=== PATIENT | female | born 1940 | race Caucasian/White ===

== ENCOUNTER 2021-08-05 05:20 | Day surgery (SDC) | payer MEDICARE, SELFPAY ==
[2021-08-05] VITALS (7 sets, daily range): BP systolic 107–133; BP diastolic 63–86; PULSE 63–67; RESP 15–18; TEMP 36.3–36.8; O2SAT 96–98; BMI 36.8
--- NOTE | 2021-08-05 | COLBX_PTH ---
PATIENT: BASILIO LOPEZ LOC: EN U#:[id number] AGE/SX: 81/F ROOM: RE08/05/[address]: Dr. Hector Franco DO : 1940 BED: DIS: 08/05/2021 SPEC #: [id number] RECD: 08/05/21 12:41 STATUS: SYLVIA SUZAN #: [id number] ASHLEY: 08/05/21 00:[address]: Hector Franco DEPT: SURGICAL PATHOLOGY RECD BY: Raghu Gaona ENTERED: 08/05/21 12:42 SP TYPE: COLON BX OTHR DR: Dr. Amilcar Quijano MD Tissues: A - COLON BIOPSY B - Cecum, NOS C - SPLENIC FLEXURE Procedures: Surgery Specimen Level IV HEADER OPERATION: Colonoscopy (MAC) PRE-OP DIAGNOSIS: Positive Cologuard test, constipation TISSUE SUBMITTED: A ? Hepatic flexure polyp biopsy, B ? Cecum polyp, C ? Splenic flexure polyp biopsy MICROSCOPIC DIAGNOSIS A. Colonic polyp at hepatic flexure, biopsy: Tubular adenoma. Melanosis coli. B. Cecum, biopsy: Rare benign glandular epithelium and fecal debris. See comment. C. Colonic polyp at splenic flexure, biopsy: Tubular adenoma. Melanosis coli. AM:therese 08/06/2021 COMMENT B. The specimen primarily consists of fecal material. Clinical correlation is suggested. MICROSCOPIC DESCRIPTION Slides are reviewed. GROSS DESCRIPTION A - Received in fixative is one container labeled with the patient's name and designated hepatic flexure polyp biopsy. The specimen consists of two irregular fragments of light ramos soft tissue that in aggregate measure 0.6 x 0.3 x 0.2 cm. The specimen is totally submitted in one cassette. B - Received in fixative is one container labeled with the patient's name and designated cecum polyp. The specimen consists of multiple irregular fragments of ramos soft tissue mixed with fecal material that in aggregate measure 2.5 x 0.5 x 0.1 cm. The specimen predominantly consists of fecal material. The specimen is totally submitted in one cassette. C - Received in fixative is one container labeled with the patient's name and designated splenic flexure polyp. The specimen consists of one irregular fragment of ramos soft tissue that measures 0.3 x 0.2 x 0.1 cm. The specimen is totally submitted in one cassette. / SJ:therese 08/05/2021 TC:5 CPT: 35532 x3
[2021-08-05 05:55] LABS: Bedside Glucose 143 mg/dL (70-110)
[2021-08-05 06:05] LABS: INR Fingerstick 1.1; Prothrombin Time Fingerstick 13.5 SEC (11.9-14.4)
--- NOTE | 2021-08-05 06:18 | HP.PCM_ITS ---
History and Physical Date of Admission: 08/05/21 BASILIO LOPEZ, is a 81 F who presents to the office today for for constipation and a positive cologuard. Presents today following cologard test which returned positive 11.10.21. Constipation for the last couple of months. She has taken magnesium citrate on one occasion which was effective. Miralax also used with minimal effect. 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 ROS Const Constitutional: No anorexia, fatigue, fever(s), weight change or sleep problems Eyes Eyes: No change in vision ENT ENT: No abnormal hearing, difficulty swallowing, mouth lesions, tongue swelling or throat swelling Resp Respiratory: No cough or shortness of breath Cardio Cardiology: No chest pain at rest, chest pain with exertion, shortness of breath or dyspnea on exertion Gastro GI: No difficulty swallowing Genitourinary-Female: No difficulty urinating or burning urination Musc Musculoskeletal: No joint pain, joint swelling, muscle weakness or decreased muscle mass Skin Skin: No hair loss in leg, yellowing of the eye, itchy eyes, rash, skin ulcer or skin swelling Neuro Neurology: No abnormal hearing, abnormal movements, confusion, unsteady gait/balance or memory loss Psych Psychiatric: No anxiety, No confusion and No memory loss Endo Endocrine: No fatigue or weight change Aller/Imm Allergy/Immunologic: No itchy eyes, throat swelling or tongue swelling Bill/Lymp Hematologic/Lymphatic: No easy bleeding, easy bruising or enlarged lymph nodes Exam Const General: cooperative and comfortable Nutritional Appearance: average body habitus and well nourished [facility] Head: normal to inspection Ears: hearing grossly normal bilaterally Nose: external nose normal Face and sinus: normal facial exam Mouth: oral mucosae normal Throat: posterior oropharynx normal Eyes General: appearance normal, both eyes and all related structures Neck Neck: normal visual inspection Chest Chest palpation & inspection: normal inspection of the chest and normal palpation of entire chest wall Resp Effort & Inspection: normal respiratory effort Auscultation: Bilateral: Clear to Auscultation Cardio Palpation: normal PMI Rate: regular rate Rhythm: regular rhythm GI Inspection: normal to inspection Auscultation: normal bowel sounds Percussion: normal to percussion Palpation: no hepatosplenomegaly Skin General: no rashes or lesions noted Neuro General: patient alert Extrem General: normal to inspection Psych Affect: normal affect Assessment and Plan Assessment and Plan (1) Positive colorectal cancer screening using Cologuard test: Status: Acute Plan - Dr. Young Friend, DO: This is possibly a false positive. However in the setting of anticoagulation and worsening constipation we will perform a colonoscopy for complete evaluation of the colon. She will be explained alternatives, risk, benefits including not withstanding bleeding, infection, sepsis, perforation, need for emergent . She will have an ASA of 3. She will hold her Coumadin 3 days prior to procedure. (2) Constipation: Status: Acute Plan - Dr. Young Friend, DO: She was given recommendations for a natural lubricant to help her have a normal bowel movement daily basis. She has known to have diverticular disease and hopefully this will cut down on instances of diverticulitis bleeding or constipation,. I have re-examined the patient. There are no clinical changes since date of exam.
[2021-08-05] MEDS: Lactated Ringers 1,000 ML 100 ML IV (06:34)
--- NOTE | 2021-08-05 07:17 | OP.COLON_ITS ---
Patient Name: Allison Amaya Procedure Date: 08/05/2021 6:24 AM Date of : 1940 Age: 81 Procedure: Colonoscopy Indications: Screening for colorectal malignant neoplasm Providers: Hector Franco DO Medicines: See the Anesthesia note for documentation of the administered medications Patient Profile: This is an 81 year old female. Refer to note in patient chart for documentation of history and physical. Last Colonoscopy: none. The patient's first colonoscopy is today. Complications: No immediate complications. Procedure: Pre-Anesthesia Assessment: - Prior to the procedure, a History and Physical was performed, and patient medications and allergies were reviewed. The patient is competent. The risks and benefits of the procedure and the sedation options and risks were discussed with the patient. All questions were answered and informed consent was obtained. Patient identification and proposed procedure were verified by the physician in the pre-procedure area. Mental Status Examination: alert and oriented. Airway Examination: normal oropharyngeal airway and neck mobility. Respiratory Examination: clear to auscultation. CV Examination: normal. Prophylactic Antibiotics: The patient does not require prophylactic antibiotics. Prior Anticoagulants: The patient has taken no previous anticoagulant or antiplatelet agents. ASA Grade Assessment: II - A patient with mild systemic disease. After reviewing the risks and benefits, the patient was deemed in satisfactory condition to undergo the procedure. The anesthesia plan was to use moderate sedation / analgesia (conscious sedation). Immediately prior to administration of medications, the patient was re-assessed for adequacy to receive sedatives. The heart rate, respiratory rate, oxygen saturations, blood pressure, adequacy of pulmonary ventilation, and response to care were monitored throughout the procedure. The physical status of the patient was re-assessed after the procedure. After I obtained informed consent, the scope was passed under direct vision. Throughout the procedure, the patient's blood pressure, pulse, and oxygen saturations were monitored continuously. The Colonoscope was introduced through the anus and advanced to the cecum, identified by appendiceal orifice and ileocecal valve. The colonoscopy was performed without difficulty. The patient tolerated the procedure well. The quality of the bowel preparation was fair. Moderate Sedation: Moderate (conscious) sedation was administered by the endoscopy nurse and supervised by the endoscopist. The following parameters were monitored: oxygen saturation, heart rate, blood pressure, and response to care. Total physician intraservice time was 15 minutes. Scope In: 6:42:50 AM Scope Withdrawal Time 0 hours 14 minutes 58 seconds Scope Out: 7:08:00 AM Total Procedure Duration Time 0 hours 25 minutes 10 seconds Findings: The perianal and digital rectal examinations were normal. A diffuse area of severe melanosis was found in the entire colon. Four sessile polyps were found in the splenic flexure, hepatic flexure and cecum. The polyps were 1 to 2 mm in size. These polyps were removed with a hot snare. Resection and retrieval were complete. Verification of patient identification for the specimen was done. Estimated blood loss was minimal. Scattered small and large-mouthed diverticula were found in the recto-sigmoid colon, sigmoid colon and descending colon. There was no evidence of diverticular bleeding. Impression: - Preparation of the colon was fair. - Melanosis in the colon. - Four 1 to 2 mm polyps at the splenic flexure, at the hepatic flexure and in the cecum, removed with a hot snare. Resected and retrieved. - Moderate diverticulosis in the recto-sigmoid colon, in the sigmoid colon and in the descending colon. There was no evidence of diverticular bleeding. Recommendation: - Discharge patient to home. - Resume previous diet. - Continue present medications. - Await pathology results. - Repeat colonoscopy in 3 years for surveillance of multiple polyps. - Return to GI office. Procedure Code(s): --- Professional --- 21896, Colonoscopy, flexible; with removal of tumor(s), polyp(s), or other lesion(s) by snare technique 51726, 59, Moderate sedation services provided by the same physician or other qualified health auto care center manager performing the diagnostic or therapeutic service that the sedation supports, requiring the presence of an independent trained observer to assist in the monitoring of the patient's level of consciousness and physiological status; initial 15 minutes of intraservice time, patient age 5 years or older CPT copyright 2017 [employer]. All rights reserved. The codes documented in this report are preliminary and upon occupational physician review may be revised to meet current compliance requirements. Hector Franco DO 08/05/2021 7:17:02 AM This report has been signed electronically. Number of Addenda: 1 Note Initiated On: 08/05/2021 6:24 AM Addendum Number: 1 Addendum Date: 03/24/2022 6:19:55 AM MAC was used instead of moderate sedation for the patient. Hector Franco DO 03/24/2022 6:20:02 AM This report has been signed electronically.
--- NOTE | 2021-08-05 07:18 | OP.CCLET_ITS ---
03/24/2022 Amilcar Quijano [address] [place] [address] [place] [address] Re : Colonoscopy procedure for Allison Jose Luis Dear Dr. Quijano This procedure was performed on July. My impressions and recommendations are as follows: Impressions : - Preparation of the colon was fair. - Melanosis in the colon. - Four 1 to 2 mm polyps at the splenic flexure, at the hepatic flexure and in the cecum, removed with a hot snare. Resected and retrieved. - Moderate diverticulosis in the recto-sigmoid colon, in the sigmoid colon and in the descending colon. There was no evidence of diverticular bleeding. Recommendations : - Discharge patient to home. - Resume previous diet. - Continue present medications. - Await pathology results. - Repeat colonoscopy in 3 years for surveillance of multiple polyps. - Return to GI office. My findings are described in the full procedure note, which is enclosed. If I can be of further assistance, please feel free to contact me at . Sincerely, Hector Franco, 08/05/2021 7:17:02 AM This report has been signed electronically.
== END 2021-08-05 23:59 | disposition home or self-care (01) ==
LOC: EN 05:26 → AC 05:27
PROVIDERS: PCP Family Medicine; Referring Provider Family Medicine; Visit Provider Internal Medicine Gastroenterology
PROC: 0DJD8ZZ Inspection of Lower Intestinal Tract, Via Natural or Artificial Opening Endoscopic (ICD-10-PCS; CPT 45378; principal; 2021-08-05 06:25)
DX: Z12.11 Encounter for screening for malignant neoplasm of colon (principal); E11.21 Type 2 diabetes mellitus with diabetic nephropathy; E11.319 Type 2 diabetes mellitus with unspecified diabetic retinopathy without macular edema; I49.5 Sick sinus syndrome; I48.0 Paroxysmal atrial fibrillation; D12.3 Benign neoplasm of transverse colon; K63.5 Polyp of colon; K57.30 Diverticulosis of large intestine without perforation or abscess without bleeding; K63.89 Other specified diseases of intestine; I25.10 Atherosclerotic heart disease of native coronary artery without angina pectoris; K76.0 Fatty (change of) liver, not elsewhere classified; K21.9 Gastro-esophageal reflux disease without esophagitis; I10 Essential (primary) hypertension; E78.5 Hyperlipidemia, unspecified; E66.9 Obesity, unspecified; Z95.0 Presence of cardiac pacemaker; G25.81 Restless legs syndrome; Z68.36 Body mass index [BMI] 36.0-36.9, adult; Z79.84 Long term (current) use of oral hypoglycemic drugs; Z79.82 Long term (current) use of aspirin; Z79.01 Long term (current) use of anticoagulants; Z79.899 Other long term (current) drug therapy
CPT/HCPCS: 45385; 36416; 82962; 85610; 87426; 88305; J7120; J2405